=== PATIENT | male | born 1935 | race Caucasian/White ===

== ENCOUNTER → 2021-05-04 | Outpatient (CLI) | payer MEDICARE, OTHER ==
[~2021-05-04] MED LIST: AMLODIPINE BESY10 MG PO; ASPIRIN EC81 MG PO; BRILINTA90 MG PO; CARVEDILOL12.5 MG PO; CARVEDILOL6.25 MG PO; COMBIVENT RESPIM4 GM INH; COREG 3.125M3.125 MG PO; DUREZOL5 ML EYERT; FISH OIL CONCE1 EACH PO; FLAGYL500 MG PO; FLOMAX 0.4 MG0.4 MG PO; LATANOPROST2.5 ML EYELF; LEVOFLOXACIN500 MG PO; LUTEIN10 MG PO; MULTIVITAMIN1 EACH PO; OMEPRAZOLE20 MG PO; RAMIPRIL10 MG PO; SIMVASTATIN20 MG PO; TESSALON PERLE100 MG PO; ZOCOR 40 MG TAB40 MG PO
== END ==
LOC: HEART 5 04-14 11:00
DX: I08.3 Combined rheumatic disorders of mitral, aortic and tricuspid valves (principal); I27.20 Pulmonary hypertension, unspecified
CPT/HCPCS: 93306

== ENCOUNTER 2021-08-03 18:47 | Inpatient (IN) | payer MEDICARE, OTHER ==
[~2021-08-03] VITALS: Ht 172.7 cm; Wt 87.1 kg
[~2021-08-03 18:47] MED LIST changes: -AMLODIPINE BESY10 MG PO; -ASPIRIN EC81 MG PO; -BRILINTA90 MG PO; -CARVEDILOL12.5 MG PO; -CARVEDILOL6.25 MG PO; -COMBIVENT RESPIM4 GM INH; -DUREZOL5 ML EYERT; -FLAGYL500 MG PO; -LEVOFLOXACIN500 MG PO; -LUTEIN10 MG PO; -OMEPRAZOLE20 MG PO; -RAMIPRIL10 MG PO; -SIMVASTATIN20 MG PO; -TESSALON PERLE100 MG PO
[2021-08-03 19:43] LABS: HEMOGLOBIN 11.2 gm/dl (14.0-17.5); RED BLOOD COUNT 3.65 M/UL (4.20-5.50); WHITE BLOOD COUNT 10.2 K/UL (4.5-11.0)
[2021-08-03 19:57] LABS: BUN/CREATININE RATIO 21 (0-10)
[2021-08-04] MEDS ORDERED: BRILINTA90 MG PO (06:48)
[2021-08-04] MEDS ORDERED: DUREZOL5 ML EYERT (06:49)
[2021-08-04] MEDS ORDERED: AMLODIPINE BESY10 MG PO (06:50)
[2021-08-04] MEDS ORDERED: ASPIRIN EC81 MG PO (06:50)
[2021-08-04] MEDS ORDERED: RAMIPRIL10 MG PO (06:52)
[2021-08-04] MEDS ORDERED: LUTEIN10 MG PO (06:53)
[2021-08-04 10:58] LABS: HEMOGLOBIN 11.8 gm/dl (14.0-17.5); RED BLOOD COUNT 3.81 M/UL (4.20-5.50)
[2021-08-04 11:25] LABS: BUN/CREATININE RATIO 21 (0-10)
[2021-08-04] MEDS ORDERED: SIMVASTATIN20 MG PO (12:20)
[2021-08-04] MEDS ORDERED: OMEPRAZOLE20 MG PO (12:23)
[2021-08-04] MEDS ORDERED: CARVEDILOL6.25 MG PO (12:27)
[2021-08-05 10:40] LABS: HEMOGLOBIN 10.1 gm/dl (14.0-17.5); WHITE BLOOD COUNT 12.8 K/UL (4.5-11.0)
[2021-08-05 10:43] LABS: RED BLOOD COUNT 3.35 M/UL (4.20-5.50)
[2021-08-05 11:09] LABS: BUN/CREATININE RATIO 24 (0-10)
[2021-08-06 11:35] LABS: HEMOGLOBIN 10.7 gm/dl (14.0-17.5); RED BLOOD COUNT 3.53 M/UL (4.20-5.50); WHITE BLOOD COUNT 14.9 K/UL (4.5-11.0)
[2021-08-06 12:03] LABS: BUN/CREATININE RATIO 17 (0-10)
[2021-08-07 10:05] LABS: HEMOGLOBIN 10.7 gm/dl (14.0-17.5)
[2021-08-07 10:07] LABS: RED BLOOD COUNT 3.57 M/UL (4.20-5.50); WHITE BLOOD COUNT 15.7 K/UL (4.5-11.0)
[2021-08-07 10:34] LABS: BUN/CREATININE RATIO 13 (0-10)
[2021-08-08 10:01] LABS: RED BLOOD COUNT 3.27 M/UL (4.20-5.50); WHITE BLOOD COUNT 14.1 K/UL (4.5-11.0)
[2021-08-08 10:38] LABS: BUN/CREATININE RATIO 10 (0-10)
[2021-08-09 10:05] LABS: HEMOGLOBIN 9.8 gm/dl (14.0-17.5); RED BLOOD COUNT 3.24 M/UL (4.20-5.50); WHITE BLOOD COUNT 15.3 K/UL (4.5-11.0)
[2021-08-09 10:25] LABS: BUN/CREATININE RATIO 12 (0-10)
[2021-08-10 06:31] LABS: HEMOGLOBIN 9.9 gm/dl (14.0-17.5); RED BLOOD COUNT 3.28 M/UL (4.20-5.50)
[2021-08-10 06:58] LABS: BUN/CREATININE RATIO 10 (0-10)
[2021-08-11 06:31] LABS: HEMOGLOBIN 9.8 gm/dl (14.0-17.5); RED BLOOD COUNT 3.27 M/UL (4.20-5.50); WHITE BLOOD COUNT 18.1 K/UL (4.5-11.0)
[2021-08-11 06:36] LABS: BUN/CREATININE RATIO 10 (0-10)
[2021-08-11 14:33] LABS: WHITE BLOOD COUNT 17.3 K/UL (4.5-11.0)
[2021-08-11] MEDS ORDERED: CARVEDILOL12.5 MG PO (15:33)
[2021-08-11] MEDS ORDERED: LEVOFLOXACIN500 MG PO (15:33)
[2021-08-11] MEDS ORDERED: COMBIVENT RESPIM4 GM INH (15:40)
[2021-08-11] MEDS ORDERED: TESSALON PERLE100 MG PO (15:40)
[2021-08-11] MEDS ORDERED: FLAGYL500 MG PO (15:46)
== END 2021-08-11 18:32 | disposition home health service (06) | DRG 193 ==
LOC: ER1 18:47 → CDU 08-04 02:01 → M/S 08-04 02:01
PROVIDERS: Internal Medicine; Physician Assistant; ADMIT Internal Medicine
PROC: B24BZZ4 Ultrasonography of Heart with Aorta, Transesophageal (ICD-10-PCS; principal; 2021-08-07)
DX: J18.9 Pneumonia, unspecified organism (principal); J81.0 Acute pulmonary edema; Z20.822 Contact with and (suspected) exposure to COVID-19; J96.01 Acute respiratory failure with hypoxia; R04.2 Hemoptysis; C92.10 Chronic myeloid leukemia, BCR/ABL-positive, not having achieved remission; E87.1 Hypo-osmolality and hyponatremia; N30.00 Acute cystitis without hematuria; J90 Pleural effusion, not elsewhere classified; C92.11 Chronic myeloid leukemia, BCR/ABL-positive, in remission; R26.9 Unspecified abnormalities of gait and mobility; E86.0 Dehydration; N40.0 Benign prostatic hyperplasia without lower urinary tract symptoms; I48.0 Paroxysmal atrial fibrillation; F17.210 Nicotine dependence, cigarettes, uncomplicated; I10 Essential (primary) hypertension; E88.09 Other disorders of plasma-protein metabolism, not elsewhere classified; K22.70 Barrett's esophagus without dysplasia; K21.9 Gastro-esophageal reflux disease without esophagitis; I25.10 Atherosclerotic heart disease of native coronary artery without angina pectoris; R74.01 Elevation of levels of liver transaminase levels; Z79.01 Long term (current) use of anticoagulants; Z95.5 Presence of coronary angioplasty implant and graft; Z88.8 Allergy status to other drugs, medicaments and biological substances; Z80.9 Family history of malignant neoplasm, unspecified; Z86.73 Personal history of transient ischemic attack (TIA), and cerebral infarction without residual deficits; Z98.1 Arthrodesis status; Z80.0 Family history of malignant neoplasm of digestive organs; Z80.42 Family history of malignant neoplasm of prostate; Z79.82 Long term (current) use of aspirin; Z91.81 History of falling; I25.2 Old myocardial infarction
CPT/HCPCS: 36415; 70450; 70496; 70498; 70551; 71045; 71046; 71250; 80048; 80053; 81001; 82550; 82553; 83605; 83735; 83874; 83880; 84100; 84484; 85025; 87040; 87070; 87086; 87205; 93005; 93308; 94640; 94664; 94760; 96374; 97110; 97110-GP-CQ; 97116; 97116-GP-CQ; 97161; 97530; 99285; J0456; J0696; J1650; J1940; J2543; J2930; J7030; Q9967; U0002

== ENCOUNTER → 2021-08-25 | Outpatient (CLI) | payer MEDICARE, OTHER ==
[~2021-08-25] MED LIST changes: +AMLODIPINE BESY10 MG PO; +ASPIRIN EC81 MG PO; +BRILINTA90 MG PO; +CARVEDILOL12.5 MG PO; +CARVEDILOL6.25 MG PO; +COMBIVENT RESPIM4 GM INH; +DUREZOL5 ML EYERT; +FLAGYL500 MG PO; +LEVOFLOXACIN500 MG PO; +LUTEIN10 MG PO; +OMEPRAZOLE20 MG PO; +RAMIPRIL10 MG PO; +SIMVASTATIN20 MG PO; +TESSALON PERLE100 MG PO
== END ==
LOC: KOH-I 10:51
DX: J15.9 Unspecified bacterial pneumonia (principal)
CPT/HCPCS: 71250

== ENCOUNTER → 2022-01-08 | Outpatient (CLI) | payer MEDICARE, OTHER | LOC: EXRD 10:55 | DX: R55 Syncope and collapse (principal); I65.23 Occlusion and stenosis of bilateral carotid arteries | CPT/HCPCS: 93880 ==

== ENCOUNTER → 2022-02-03 | Outpatient (CLI) | payer MEDICARE, OTHER | LOC: HEART 5 08:00 | DX: I25.10 Atherosclerotic heart disease of native coronary artery without angina pectoris (principal); R06.02 Shortness of breath ==

== ENCOUNTER → 2022-03-01 | Outpatient (CLI) | payer MEDICARE, OTHER | LOC: RT 13:19 | DX: Z01.810 Encounter for preprocedural cardiovascular examination (principal) | CPT/HCPCS: 93005 ==

== ENCOUNTER 2022-03-30 00:38 | Emergency (ER) | payer MEDICARE, OTHER ==
[2022-03-30 01:44] LABS: HEMOGLOBIN 13.9 gm/dl (14.0-17.5); RED BLOOD COUNT 3.97 M/UL (4.20-5.50); WHITE BLOOD COUNT 14.5 K/UL (4.5-11.0)
[2022-03-30 02:19] LABS: BUN/CREATININE RATIO 23 (0-10)
[2022-03-30] MEDS ORDERED: OMNICEF 300 MG300 MG PO (06:51)
== END 2022-03-30 07:10 | disposition home or self-care (01) ==
LOC: ER1 00:38
PROVIDERS: Family Medicine
DX: N39.0 Urinary tract infection, site not specified (principal); E78.5 Hyperlipidemia, unspecified; I25.2 Old myocardial infarction; I11.9 Hypertensive heart disease without heart failure
CPT/HCPCS: 70450; 71045; 80053; 81001; 82550; 82553; 83605; 83880; 84484; 85025; 87040; 93005; 96374; 99285; J0696

== ENCOUNTER → 2022-07-08 | Outpatient (CLI) | payer MEDICARE, OTHER ==
[~2022-07-08] MED LIST changes: +OMNICEF 300 MG300 MG PO
== END ==
LOC: HEART 5 08:42
DX: R60.9 Edema, unspecified (principal)
CPT/HCPCS: 93306; 93970